=== PATIENT | male | born 1935 | race Caucasian/White ===

== ENCOUNTER 2017-07-13 00:37 | Emergency (ER) | payer MEDICARE, OTHER ==
[2017-07-13] MEDS ORDERED: Lidocaine 2% EPI 1:200000 MPF* 20 ML VIAL ONE (02:19)
[2017-07-13 02:40] VITALS: BP 166/90
[2017-07-13 02:51] LABS: Hematocrit 40 % (42-52); Hemoglobin 13.6 g/dl (14.0-18.0); Mean Corpuscular HGB Conc 34 g/dl (31-36); Mean Corpuscular Hemoglobin 30 pg (27-31); Mean Corpuscular Volume 88 fL (80-94); Mean Platelet Volume 10 um3 (7.4-10.4); Red Blood Count 4.57 10^6/ul (4.0-5.4); Red Cell Distribution Width 15 % (10.5-15); White Blood Count 10.6 10^3/ul (3.5-10.8)
--- NOTE | 2017-07-13 03:04 | ED ---
Masha Hooper Nilda, scribed for Ailyn Richardson MD on 07/13/17 at 0118 . Adult Trauma - HPI Summary HPI Summary: This patient is an 82 year old M presenting to [facility] accompanied by step-son with a chief complaint of head laceration s/p syncopal episode while walking to bathroom earlier this evening. Per step-son, patient fell, hit his head, and had LOC for 3-4 minutes. The patient rates the pain 3/10 in severity. Patient reports that he does not remember how he fell. Patient denies abd pain, weakness , and numbness. Pt states he had a tetanus shot a few weeks ago. He also notes that he had a similar black out episode a few weeks ago but did not seek medical attention. Per EMS, PMHx includes dementia. - History of Current Complaint Chief Complaint: EDHeadInjury Stated Complaint: FALL/SYNCOPE Time Seen by Provider: 07/13/17 00:55 Hx Obtained From: Patient, Family/Investigation Manager - step-son, Medical Records - triage Mechanism of Injury: Fall Loss of Consciousness: prolonged (minutes) Onset/Duration: Started Minutes Ago, Traumatic, Still Present Current Severity: Mild Pain Intensity: 3 Pain Scale Used: 0-10 Numeric Location: Head Associated Signs & Symptoms: Positive: Other: - LOC, laceration on left side of forehead - Allergy/Home Medications Allergies/Adverse Reactions: Allergies Allergy/AdvReac Type Severity Reaction Status Date / Time No Known Allergies Allergy Verified 07/13/17 02:43 PMH/Surg Hx/FS Hx/Imm Hx Endocrine/Hematology History: Denies: Hx Diabetes EENT History: Denies: Hx Deafness Neurological History: Reports: Hx Dementia Infectious Disease History: No Infectious Disease History: Denies: Traveled Outside the [place] in Last 30 Days - Family History Known Family History: Negative: Hypertension, Diabetes - Social History Lives: With Family Alcohol Use: Rare Substance Use Type: Reports: None Smoking Status (MU): Former Smoker Review of Systems Negative: Abdominal Pain Positive: Other - laceration to left forehead Neurological: Other - fall, LOC for 3-4 mins Positive: Syncope. Negative: Weakness, Numbness All Other Systems Reviewed And Are Negative: Yes Physical Exam - Summary Physical Exam Summary: GENERAL: Patient is a well-developed and nourished (MALE OR FEMALE) who is lying comfortable in the stretcher. Patient is not in any acute respiratory distress. HEAD AND FACE: Head is wrapped. No sinus tenderness. EYES: PERRLA, EOMI x 2, No injected conjunctiva, no nystagmus. EARS: Hearing grossly intact. Ear canals and tympanic membranes are within normal limits. MOUTH: Oropharynx within normal limits. NECK: Pt presents with C-Collar. CHEST: Symmetric, no tenderness at palpation LUNGS: Clear to auscultation bilaterally. No wheezing or crackles. CVS: Regular rate and rhythm, S1 and S2 present, no murmurs or gallops appreciated. ABDOMEN: Soft, non-tender. No signs of distention. No rebound no guarding, and no masses palpated. Bowel sounds are normal. EXTREMITIES: no edema, no cyanosis or clubbing. NEURO: Alert and oriented x 3. No acute neurological deficits. Speech is normal and follows commands. SKIN: Dry and warm Triage Information Reviewed: Yes Vital Signs On Initial Exam: Initial Vitals Temp Pulse Resp BP Pulse Ox 98.1 F 92 18 162/97 96 07/13/17 00:46 07/13/17 00:46 07/13/17 00:46 07/13/17 00:46 07/13/17 00:46 Vital Signs Reviewed: Yes - [place] Coma Scale Coma Scale Total: 15 Diagnostics - Vital Signs Vital Signs Temp Pulse Resp BP Pulse Ox 07/13/17 00:46 98.1 F 92 18 162/97 96 - Laboratory Result Diagrams: 07/13/17 02:10 Lab Statement: Any lab studies that have been ordered have been reviewed, and results considered in the medical decision making process. - Radiology CXR Radiology Interpretation Completed By: ED Physician - FISH. - CT C-spine CT Interpretation Completed By: Radiologist - CT C-Spine, per radiologist, reveals: postive for acute fracture of the anteroinferior corner of the C5 vertebral body. There is also a fractured osteophyte of the anteroinferior aspect of the C4 vertebral body which is of indeterminate age. There is soft tissue swelling anterior to the C5 fracture and therefore the possibility of anterior longitudinal ligament injury should be considered. No other cervical fracture or acute cervical malalignment. Degenerative changes. Emphysematous changes noted at the lung apices. ED physician has reviewed these results and agrees. - EKG 0152 Cardiac Rate: NL EKG Rhythm: Atrial Fibrillation - at 84 bpm EKG Interpretation: LVH, nonspecific T-wave changes. Re-Evaluation - Re-Evaluation First Eval Re-Evaluation Time: 02:10 Comment: Reviewed labs with patient. Re-examination: Patient has laceration over left forehead that measures 5cm vertically and 3 cm horizontally. Minimal bleeding at this time. A&O 3x. Adult Trauma Course/Dx - Course Assessment/Plan: This patient is an 82 year old M presenting to [facility] accompanied by step-son with a chief complaint of head laceration s/p syncopal episode while walking to bathroom earlier this evening. Per step-son, patient fell, hit his head, and had LOC for 3-4 minutes. The patient rates the pain 3/ 10 in severity. Patient reports that he does not remember how he fell. Patient denies abd pain. Pt states he had a tetanus shot a few weeks ago. He also notes that he had a similar black out episode a few weeks ago but did not seek medical attention. Per EMS, PMHx includes dementia. Pending CXR, CT brain, CT C -Spine, and EKG. CT C-Spine, per radiologist, reveals: postive for acute fracture of the anteroinferior corner of the C5 vertebral body. There is also a fractured osteophyte of the anteroinferior aspect of the C4 vertebral body which is of indeterminate age. There is soft tissue swelling anterior to the C5 fracture and therefore the possibility of anterior longitudinal ligament injury should be considered. No other cervical fracture or acute cervical malalignment. Degenerative changes. Emphysematous changes noted at the lung apices. ED physician has reviewed these results and agrees. [0152] EKG reveals a-fib, 84 bpm, LVH, nonspecific T-wave changes. [0216] Dr. Farley (trauma surgeon) accepts patient for transfer to [facility] ICU. He recommended to leave laceration without repair at this time. He will take care of it. Pt is stable and will be transferred to [facility] with Dx of Intracerebral hemorrhage and c-spine fracture. CCT 40 mins - Diagnoses Provider Diagnoses: Intracerebral hemorrhage, Cervical spine fracture - Physician Notifications Discussed Care Of Patient With: Geronimo Farely - Trauma Surgeon Time Discussed With Above Provider: 02:16 Instructed by Provider To: Transfer - Critical Care Time Critical Care Time: 30-74 min - 40 mins Discharge - Discharge Plan Condition: Stable Disposition: TRANS HIGHER LVL OF CARE FAC Referrals: Mingo DAY,Chelsi [Primary Care Provider] - The documentation as recorded by the Masha franco Nilda accurately reflects the service I personally performed and the decisions made by me, Ailyn Richardson MD.
[2017-07-13 03:08] LABS: Albumin 3.5 g/dL (3.2-5.2); BUN/Creatinine Ratio 24.1 (8-20); Calcium 9.6 mg/dL (8.6-10.3); EGFR African American 107.5 (>60); EGFR Non-African American 83.6 (>60); Globulin 2.8 g/dL (2-4); Total Bilirubin 1.1 mg/dL (0.2-1.0); Total Protein 6.3 g/dL (6.4-8.9)
--- NOTE | 2017-07-13 09:12 | RAD ---
INDICATION: Laceration left forehead after a fall COMPARISON: None. TECHNIQUE: Single AP portable view of the chest was obtained. FINDINGS: Image quality is compromised due to the relative inferiority of a portable chest x-ray. There is a left upper chest cardiac pacemaker with 2 leads overlying the heart. The heart and mediastinum exhibit normal size and contour. Overlying the lateral aspect of the left lung base are 2 focal densities in close proximity to the pleura. Otherwise the lungs are grossly clear. There is no evidence of a large pleural effusion. Visualized bones are normal for the patient's age. IMPRESSION: Densities at the lateral left lung base could represent focal nodules or atelectasis.
--- NOTE | 2017-07-13 09:28 | RAD ---
indication: Laceration to left forehead after a fall COMPARISON: None A CT scan of the brain and c-spine was performed without intravenous contrast enhancement. Contiguous axial sections were obtained from the lung apices through the vertex. BRAIN: In the parenchymal white tracts of the left frontal lobe (image 14) there is an 8 mm hyperattenuating focus consistent with hemorrhage in this clinical setting. At the right of midline extra-axial space adjacent to the falx cerebri there is a 4 x 8 mm hyperattenuating focus (image 12). Immediately anterior to the right frontal lobe (axial image 25 of 36) there is a 3 mm hypoattenuating focus likely representing subarachnoid hemorrhage in this clinical setting. There is no intracranial mass effect or herniation. The ventricles, cisterns and sulci exhibit symmetrical involutional changes. There is periventricular and subcortical white matter hypoattenuation most consistent with moderate microvascular disease. Otherwise the michael-white differentiation is adequately maintained. There is subcutaneous induration and dermal defect overlying the left frontal bone consistent with the patient's reported superficial injury. There is no underlying calvarial fracture or other traumatic bony injury. The mastoid air cells are appropriately aerated. The visualized paranasal sinuses are clear. C-SPINE: Best depicted on the sagittal view images is a fracture at the inferior anterior corner of the C5 vertebral body (sagittal images 36 through 42). No other traumatic fractures are visualized. The dens is intact. There is no widening of the atlantodental interval. Multilevel degenerative changes of the cervical spine include loss of intervertebral disc height with marginal osteophyte formation. Most severely affecting C4/C5 with vacuum disc phenomenon at C6/C7. At these same levels there is uncovertebral hypertrophy. There is no hyperdense material in the cervical canal to indicate hemorrhage. The visualized musculature and soft tissues are normal. There is no gross lymphadenopathy visualized. There is advanced coarse calcification of the bilateral carotid bulbs. The bilateral lung apices are lobular emphysematous changes. IMPRESSION: 1. CT findings are compatible with foci of left frontal lobe intraparenchymal hemorrhage as well as extra-axial likely subarachnoid hemorrhage external to the right frontal lobe as described above. There is no mass effect or intracranial herniation. 2. Nondisplaced fracture involving the inferior anterior corner of the C5 vertebral body.
== END 2017-07-13 03:16 | disposition short-term general hospital (02) ==
LOC: ED 00:37
DX: I61.9 Nontraumatic intracerebral hemorrhage, unspecified (principal); S12.9XXA Fracture of neck, unspecified, initial encounter; S01.81XA Laceration without foreign body of other part of head, initial encounter; W19.XXXA Unspecified fall, initial encounter; Y93.9 Activity, unspecified; Y92.9 Unspecified place or not applicable
CPT/HCPCS: 36415; 70450; 71010; 72125; 80053; 85025; 85610; 85730; 93005; 99285